=== PATIENT | female | born 1965 | race African-American/Black ===

== ENCOUNTER → 2020-06-11 | Outpatient (CLI) | payer OTHER ==
[2019-04-11 22:15] VITALS: BP 128/75
[~2020-06-11] MED LIST: CHOL2000 PO; FAMO-63 PO; LEVO112T2 PO; LISI-334 PO; METF500T16 PO; ONDA4TAB12 PO; SUMA50TA4 PO
--- NOTE | 2020-06-11 14:44 | RAD ---
Bilateral lower survey arterial duplex ultrasound study without comparison for peripheral arterial disease. TECHNIQUE AND FINDINGS: Real-time grayscale and color spectral Doppler evaluation of the arteries of lower extremities is performed. There is mild multifocal atherosclerosis. There is triphasic flow within all distributions of both lower extremities, and there are no segmental velocity changes to suggest hemodynamically significant stenosis at any level. IMPRESSION: 1. Mild multifocal atherosclerosis with no hemodynamically significant stenosis by sonographic criteria. Electronically signed by: Aurelio Membreno MD (06/11/2020 2:42 PM) [id number]
== END ==
LOC: US 12:22
PROVIDERS: ATTEND Internal Medicine
DX: I70.208 Unspecified atherosclerosis of native arteries of extremities, other extremity (principal)
CPT/HCPCS: 93925

== ENCOUNTER → 2020-09-03 | Outpatient (CLI) | payer OTHER ==
[2019-04-11 22:15] VITALS: BP 128/75
[~2020-09-03] MED LIST changes: +CIPR500T94 PO; -LISI-334 PO; +LISI20TA18 PO; +METR500T PO
--- NOTE | 2020-09-03 16:14 | KCIC ---
EXAM: MRI LEFT KNEE DATE: 09/03/2020 10:35 AM CLINICAL INDICATION: LEFT KNEE PAIN AND GIVING OUT SENSATION, Pt fell May 2020. Medial knee pain. COMPARISON: None. TECHNIQUE: Multiplanar, multisequence MRI of the left knee was performed without contrast. FINDINGS: No knee joint effusion. Small Medrano's cyst. PCL is intact. Artifact through the intercondylar notch limits evaluation of the ACL. Within these co nstraints there may be a small fluid cleft at the femoral attachment of the ACL attachment. Moderate increased signal about the MCL with thickening of the MCL suggesting low-intermediate grade sprain. Collateral ligament, biceps femoris and IT band are intact. Popliteus is normal in signal and morphology, intact. Medial meniscus: Intact Lateral meniscus: Oblique signal extending through the posterior horn-body junction of the lateral me niscus is consistent with oblique tear with associated undersurface fraying. Extensor mechanism is intact. Suprapatellar fat pad edema may be seen with anterior knee pain/impinge ment. Intermittent chondral fissuring with subchondral edema at the patellar apex extending into the latera l patellar facet. Medial trochlear chondral fissuring with focus of subchondral edema. No fracture or osteonecrosis. IMPRESSION: 1. Thickening of the MCL with intrasubstance and associated soft tissue edema consistent with low-in termediate grade sprain of the MCL. 2. Artifact in the intercondylar notch limits evaluation of the ACL. Small fluid cleft is suspected at the femoral attachment of the ACL with equivocal for partial thickness (or single bundle) ACL tear . 3. Oblique tear posterior horn-body junction lateral meniscus 4. Suprapatellar fat pad edema may be seen with anterior knee pain/impingement. 5. Patellofemoral predominant chondromalacia. 6. Small Medrano's cyst Electronically signed by: Diego Lizarraga MD (09/03/2020 4:12 PM) [facility]
== END ==
LOC: KCIC MRI 09:58
PROVIDERS: ATTEND Physical Medicine & Rehabilitation
DX: S83.282A Other tear of lateral meniscus, current injury, left knee, initial encounter (principal); M17.0 Bilateral primary osteoarthritis of knee; M79.89 Other specified soft tissue disorders; M79.4 Hypertrophy of (infrapatellar) fat pad; M22.42 Chondromalacia patellae, left knee; M71.22 Synovial cyst of popliteal space [Baker], left knee; X58.XXXA Exposure to other specified factors, initial encounter; Y93.89 Activity, other specified; Y92.89 Other specified places as the place of occurrence of the external cause; Y99.8 Other external cause status
CPT/HCPCS: 73721

== ENCOUNTER 2021-02-09 23:26 | Emergency (ER) | payer OTHER ==
[~2021-02-09] VITALS: Ht 170.2 cm; Wt 115.0 kg
[~2021-02-09 23:26] MED LIST changes: -CIPR500T94 PO; -METR500T PO
[2021-02-10 00:22] LABS: BILIRUBIN,URINE NEGATIVE (NEG); CLARITY,URINE CLEAR; COLOR,URINE YELLOW; NITRITE,URINE NEGATIVE (NEG); PH,URINE 5.5 (<5.0-8.0); PROTEIN,URINE NEGATIVE (NEG-TRACE); UROBILINOGEN,URINE 0.2 mg/dL (0.2 mg/dL)
[2021-02-10] MEDS ORDERED: IV NORMAL SALINE 1000ML BAG 1,000 ML IV ONE (00:30)
[2021-02-10 00:31] LABS: BASO # 0.1 x10^3/uL (0.0-0.2); BASO % 1 % (0-3); EOS # 0.1 x10^3/uL (0.0-0.7); EOS % 1 % (0-3); HEMATOCRIT 32.1 % (36.0-47.0); HEMOGLOBIN 10.9 g/dL (12.0-15.5); LYMPH # 1.8 x10^3/uL (1.0-4.8); LYMPH % 21 % (24-48); MEAN CORPUSCULAR HEMOGLOBIN 29 pg (25-35); MEAN CORPUSCULAR HGB CONC 34 g/dL (31-37); MEAN CORPUSCULAR VOLUME 84 fL (79-100); MONO # 0.7 x10^3/uL (0.0-1.1); MONO % 8 % (0-9); NEUT # 5.9 x10^3/uL (1.8-7.7); NEUT % 70 % (31-73); PLATELET COUNT 213 x10^3/uL (140-400); RED BLOOD COUNT 3.83 x10^6/uL (3.50-5.40); WHITE BLOOD COUNT 8.5 x10^3/uL (4.0-11.0)
--- NOTE | 2021-02-10 00:31 | PHYS DOC ---
Past Medical History Past Medical History: Hypertension Past Surgical History: Cholecystectomy, , Gastric Bypass Additional Past Surgical Histo: THYROIDECTOMY Smoking Status: Never Smoker Alcohol Use: None Drug Use: None General Adult EDM: Chief Complaint: MULTIPLE COMPLAINTS HPI: HPI: Patient is a 56 year old [f__sex] who presents with [] Review of Systems: Review of Systems: Constitutional: Denies fever or chills Eyes: Denies redness or eye pain HENT: Denies nasal congestion or sore throat Respiratory: Denies cough or shortness of breath Cardiovascular: Denies chest pain or palpitations GI: Denies abdominal pain, nausea, or vomiting : Denies dysuria or hematuria Musculoskeletal: Denies back pain or joint pain Integument: Denies rash or skin lesions Neurologic: Denies headache, focal weakness or sensory changes Complete systems were reviewed and found to be within normal limits, except as documented in this note. Heart Score: C/O Chest Pain: Yes HEART Score for Chest Pain: HEART Score for Chest Pain Response (Comments) Value History Slighlty/Non-Suspicious 0 ECG Normal 0 Age >45 - < 65 1 Risk Factors 1 or 2 Risk Factors 1 Troponin < Normal Limit 0 Total 2 Risk Factors: Risk Factors: DM, Current or recent (<one month) smoker, HTN, HLP, family history of CAD, obesity. Risk Scores: Score 0 - 3: 2.5% MACE over next 6 weeks - Discharge Home Score 4 - 6: 20.3% MACE over next 6 weeks - Admit for Clinical Observation Score 7 - 10: 72.7% MACE over next 6 weeks - Early Invasive Strategies Current Medications: Current Medications Medications (Trade) Dose Ordered Sig/Trupti Start Time Stop Time Status Last Admin Dose Admin Sodium Chloride 1,000 ml @ 1,000 mls/hr 1X ONCE 02/10/21 00:30 02/10/21 01:29 Allergies: Allergies: Allergies Coded Allergies Type Severity Reaction Last Updated Verified shrimp Allergy Severe FACIAL SWELLING 02/10/21 Yes Penicillins Allergy Intermediate 04/11/19 Yes Sulfa (Sulfonamide Antibiotics) Allergy Intermediate 04/11/19 Yes Physical Exam: PE: Constitutional: Well developed, well nourished, no acute distress, non-toxic appearance HENT: Normocephalic, atraumatic Eyes: PERRL, EOMI, conjunctiva normal, no discharge Neck: Normal range of motion, no tenderness, supple Lungs & Thorax: No respiratory distress, equal chest rise and fall Abdomen: Soft, no tenderness Skin: Warm, dry, no erythema, no rash Back: No tenderness, no CVA tenderness Extremities: No tenderness, ROM intact, no edema Neurologic: Alert and oriented X 3, normal motor function, normal sensory function, no focal deficits noted Psychologic: Affect normal, judgment normal EKG: EKG: @0016 NSR at 88bpm, NO ST elevation, QRS 80ms, QT/QTc 340/415ms Radiology/Procedures: Radiology/Procedures: PROCEDURE: CT CHEST ABDOMEN PELVIS WO CT ABDOMEN_ AND PELVIS WITHOUT CONTRAST History: Reason: fever, upper abdominal, pain, nausea / Spl. Instructions: / History: Technique: Noncontrast examination of the abdomen and pelvis. Coronal and sagittal reconstructions were performed. Exposure: One or more of the following individualized dose reduction techniques were utilized for this examination: 1. Automated exposure control 2. Adjustment of the mA and/or kV according to patient size 3. Use of iterative reconstruction technique. Comparison: April 11, 2019. Findings: Lower chest: Left lower lobe calcified pulmonary nodule, likely prior granulomatous disease. Abdomen and pelvis: The liver, spleen, adrenal glands, and pancreas are unremarkable. Prior cholecystectomy. No biliary ductal dilatation. Unremarkable noncontrast appearance of the kidneys. No hydronephrosis. No renal, ureteral or urinary bladder calculus. Decompressed urinary bladder. Colonic diverticulosis. Descending colonic wall thickening with inflamed diverticula and adjacent pericolonic edema. No pneumoperitoneum. No abscess. Pu nctate gas adjacent to the colon (series 2 image 37), likely within the inflamed diverticulum. Moderate colonic stool burden. Normal appendix. No evidence of bowel obstruction. Postoperative changes gastric bypass. No pathologic lymphadenopathy. No ascites. Fat-containing periumbilical hernia. Bones: Multilevel lumbar spinal stenosis most prominent L3-L4. Impression: 1. Acute descending colonic diverticulitis. No perforation or abscess. Recommend follow-up. Electronically signed by: Otoniel Moura DO (02/10/2021 1:16 AM) [facility] Course & Med Decision Making: Course & Med Decision Making Pertinent Labs and Imaging studies reviewed. (See chart for details) Patient stable for discharge with outpatient follow-up with PCP/GI. GI referral provided. Discussed findings and plan with patient and family, who acknowledge understanding and agreement. Mario Disclaimer: Mario Disclaimer: This electronic medical record was generated, in whole or in part, using a voice recognition dictation system. Departure Departure Impression: Primary Impression: Acute diverticulitis Disposition: HOME / SELF CARE / HOMELESS Condition: STABLE Referrals: KARINE MIRAMONTES MD (PCP) MADIHA PACHECO MD Patient Instructions: Diverticulitis, [id number] Additional Instructions: Increase fluid hydration. Continue use of stool softeners. Take over the counter Tylenol and/or Ibuprofen for pain or discomfort. Scripts Metronidazole (FLAGYL) 500 Mg Tablet 500 MG PO TID for 7 Days, #21 TAB Prov: MADIHA GANT DO 02/10/21 Ciprofloxacin Hcl (CIPRO) 500 Mg Tablet 1 TAB PO BID for 7 Days, #14 TAB Prov: MADIHA GANT DO 02/10/21 Ondansetron (ONDANSETRON ODT) 4 Mg Tab.rapdis 1 TAB PO PRN Q6-8HRS PRN for NAUSEA, #16 TAB Prov: MADIHA GANT DO 02/10/21 MADIHA GANT DO Feb 10, 2021 00:31
[2021-02-10 00:40] LABS: BACTERIA,URINE 0 /HPF (0-FEW); RBC,URINE 0 /HPF (0-2); WBC,URINE 0 /HPF (0-4)
[2021-02-10 00:52] LABS: CALCIUM 8.7 mg/dL (8.5-10.1); GFR 69.7; POTASSIUM 4.2 mmol/L (3.5-5.1)
[2021-02-10 00:57] LABS: ALBUMIN 2.8 g/dL (3.4-5.0); ALBUMIN/GLOBULIN RATIO 0.8 (1.0-1.7); MAGNESIUM 1.8 mg/dL (1.8-2.4); TOTAL BILIRUBIN 0.4 mg/dL (0.2-1.0); TOTAL PROTEIN 6.2 g/dL (6.4-8.2)
[2021-02-10 01:14] LABS: MONONUCLEOSIS PATIENT NEGATIVE (NEGATIVE)
--- NOTE | 2021-02-10 01:18 | RAD ---
CT ABDOMEN_ AND PELVIS WITHOUT CONTRAST History: Reason: fever, upper abdominal, pain, nausea / Spl. Instructions: / History: Technique: Noncontrast examination of the abdomen and pelvis. Coronal and sagittal reconstructions we re performed. Exposure: One or more of the following individualized dose reduction techniques were utilized for thi s examination: 1. Automated exposure control 2. Adjustment of the mA and/or kV according to patient size 3. Use of iterative reconstruction technique. Comparison: April 11, 2019. Findings: Lower chest: Left lower lobe calcified pulmonary nodule, likely prior granulomatous disease. Abdomen and pelvis: The liver, spleen, adrenal glands, and pancreas are unremarkable. Prior cholecyst ectomy. No biliary ductal dilatation. Unremarkable noncontrast appearance of the kidneys. No hydronep hrosis. No renal, ureteral or urinary bladder calculus. Decompressed urinary bladder. Colonic diverticulosis. Descending colonic wall thickening with inflamed diverticula and adjacent per icolonic edema. No pneumoperitoneum. No abscess. Punctate gas adjacent to the colon (series 2 image 3 7), likely within the inflamed diverticulum. Moderate colonic stool burden. Normal appendix. No evide nce of bowel obstruction. Postoperative changes gastric bypass. No pathologic lymphadenopathy. No asc ites. Fat-containing periumbilical hernia. Bones: Multilevel lumbar spinal stenosis most prominent L3-L4. Impression: 1. Acute descending colonic diverticulitis. No perforation or abscess. Recommend follow-up. Electronically signed by: Otoniel Moura DO (02/10/2021 1:16 AM) [facility]
--- NOTE | 2021-02-10 02:49 | EKG ---
[facility] [address] [place] [address] Test Date: 2021-02-10 Test Time: 00:16:16 Pat Name: TRACEY PICKENS Department: Room: Gender: F [employer]: : 1965 Requested By: MADIHA GANT Order Number: [id number] Reading MD: Measurements Intervals [place] Rate: 88 P: 43 AL: 148 QRS: 43 QRSD: 80 T: 39 QT: 340 QTc: 415 Interpretive Statements SINUS RHYTHM NORMAL ECG RI6.02 No previous ECG available for comparison
[2021-02-10] MEDS ORDERED: CIPR500T94 PO (03:17)
[2021-02-10] MEDS ORDERED: METR500T PO (03:17)
[2021-02-10] MEDS ORDERED: ONDA4TAB12 PO (03:17)
[2021-02-10 03:23] VITALS: BP 137/85
[2021-02-10] MEDS ORDERED: CIPROFLOXACIN HCL 250 MG TABLET. PO ONE (03:30)
[2021-02-10] MEDS ORDERED: metroNIDAZOLE 500 MG TABLET PO ONE (03:30)
== END 2021-02-10 03:40 | disposition home or self-care (01) ==
LOC: ER 23:26
DX: K57.32 Diverticulitis of large intestine without perforation or abscess without bleeding (principal); M48.061 Spinal stenosis, lumbar region without neurogenic claudication; I10 Essential (primary) hypertension; Z90.49 Acquired absence of other specified parts of digestive tract; Z98.84 Bariatric surgery status; Z88.0 Allergy status to penicillin; Z88.2 Allergy status to sulfonamides; Z91.013 Allergy to seafood
CPT/HCPCS: 36415; 71250; 74176; 80053; 81001; 82553; 83605; 83690; 83735; 83880; 84484; 85025; 86308; 93005; 96360; 99285; J7030